=== PATIENT | female | born 1990 | race Caucasian/White ===

== ENCOUNTER 2019-02-15 06:34 | Observation (INO) ==
[2019-02-15] MEDS ORDERED: HYDROmorphone 2 MG/1 ML VIAL IV STA ×3 (07:03→10:09)
[2019-02-15] MEDS ORDERED: SODIUM CHLORIDE 0.9% 1,000 ML IV STA ×2 (07:03→10:09)
[2019-02-15] MEDS ORDERED: ONDANSETRON 4 MG/2 ML VIAL IV STA (07:03)
[2019-02-15 07:44] LABS: Apearance,Urine CLEAR (Clear); Bilirubin,Urine Negative (Negative); Blood, Urine Moderate mg/dL (Negative); Glucose,Urine (UA) Negative (Negative); Ketones,Urine 80 mg/dL (Negative); Mucus,Urine Many /LPF (Occasional); Nitrite,Urine Negative (Negative); Protein,Urine 30 MG/DL; RBC,Urine 55 /HPF (0-4); Squamous Epithelial Cell,Urine Occasional /HPF (0-10); Urine Color Yellow (Yellow); Urine Specific Gravity 1.032 (1.001-1.035); Urine Urobilinogen < 2.0 EU/DL (0.2-1.0); WBC,Urine 1 /HPF (0-6)
[2019-02-15] MEDS ORDERED: KETOROLAC 30 MG/1 ML VIAL ONE (08:23)
[2019-02-15] MEDS ORDERED: KETOROLAC 30 MG/1 ML VIAL IV STA (08:29)
[2019-02-15] MEDS ORDERED: PROMETHAZINE 25 MG/1 ML VIAL ONE (10:01)
[2019-02-15] MEDS ORDERED: PROMETHAZINE 25 MG/1 ML VIAL IM STA (10:09)
[2019-02-15] MEDS ORDERED: PROMETHAZINE 25 MG/1 ML VIAL IM PRN (14:14)
[2019-02-15] MEDS ORDERED: ACETAMINOPHEN 325 MG TABLET PO PRN (14:14)
[2019-02-15 15:34] LABS: Basophils % 0.1 % (0.0-0.8); Eosinophils % 0.1 % (0.00-10.9); Hematocrit 39.5 VOL% (35.7-47.0); Hemoglobin 12.4 GM/DL (12.0-16.0); Immature Granulocytes % 0.3 %; Immature Granulocytes Absolute 0.03 #; Lymphocytes # 0.7 10*3/uL (1.4-4.0); Lymphocytes % 7.4 % (21.3-54.2); Mean Corpuscular HGB Conc 31.4 GM/DL (32-36); Mean Corpuscular Volume 91.4 FL (87-102); Monocytes % 5.7 % (1.7-12.7); Neutrophils % 86.4 % (38.7-73.9); Platelet Count 192 T/CUMM (130-400); Red Blood Count 4.32 MC/CUMM (3.8-5.5); Red Cell Distribution Width 13.7 % (9.3-17.3); White Blood Count 8.8 T/CUMM (4-12)
[2019-02-15 15:42] LABS: Calcium 9.1 MG/DL (8.5-10.1); Osmolality,Calculated 270.8 MOS/KG (273-304)
[2019-02-15] MEDS ORDERED: ENOXAPARIN 40 MG/0.4 ML SYRINGE SUBCUT SCH (16:00)
[2019-02-15] MEDS: SODIUM CHLORIDE 0.9% 1,000 ML IV SCH (16:36)
[2019-02-15] MEDS ORDERED: diphenhydrAMINE 50 MG/1 ML VIAL IV PRN (17:37)
[2019-02-15] MEDS: HYDROmorphone 2 MG/1 ML VIAL IV PRN ×2 (18:14→22:23)
[2019-02-15] MEDS: ONDANSETRON 4 MG/2 ML VIAL IV PRN (18:18)
[2019-02-15] MEDS: LACTULOSE 20 GM/30 ML UDCUP PO PRN (18:35)
[2019-02-15] MEDS: TAMSULOSIN 0.4 MG CAPSULE PO SCH (21:26)
[2019-02-16 05:51] LABS: Basophils % 0.2 % (0.0-0.8); Eosinophils # 0.1 10*3/uL (0.0-0.87); Eosinophils % 1.6 % (0.00-10.9); Hematocrit 32.2 VOL% (35.7-47.0); Immature Granulocytes % 0.2 %; Immature Granulocytes Absolute 0.01 #; Lymphocytes # 1.7 10*3/uL (1.4-4.0); Lymphocytes % 37.3 % (21.3-54.2); Mean Corpuscular HGB Conc 32.3 GM/DL (32-36); Mean Corpuscular Volume 89.9 FL (87-102); Mean Platelet Volume 11.2 FL (9.6-12.0); Neutrophils % 49.7 % (38.7-73.9); Platelet Count 167 T/CUMM (130-400); Red Blood Count 3.58 MC/CUMM (3.8-5.5); Red Cell Distribution Width 13.6 % (9.3-17.3)
[2019-02-16 06:03] LABS: Calcium 8.1 MG/DL (8.5-10.1); Osmolality,Calculated 284.7 MOS/KG (273-304)
[2019-02-16 06:25] LABS: Hemoglobin 10.4 GM/DL (12.0-16.0); White Blood Count 4.5 T/CUMM (4-12)
[2019-02-16] MEDS ORDERED: cefTRIAXone 1,000 MG in SYRINGE 1 EACH IV ONE (07:10)
[2019-02-16] MEDS: SODIUM CHLORIDE 0.9% 1,000 ML IV SCH ×3 (08:30→19:32)
[2019-02-16] MEDS ORDERED: MIDAZOLAM 2 MG/2 ML VIAL ONE (10:42)
[2019-02-16] MEDS ORDERED: fentaNYL 100 MCG/2 ML VIAL ONE (10:43)
[2019-02-16] MEDS ORDERED: PROPOFOL 200 MG/20 ML VIAL IV ONE (10:43)
[2019-02-16] MEDS ORDERED: SEVOFLURANE 1 UNIT/15 MINUTE INH ONE (10:43)
[2019-02-16] MEDS ORDERED: KETOROLAC 30 MG/1 ML VIAL ONE (10:44)
[2019-02-16] MEDS ORDERED: SODIUM CHLORIDE 0.9% 250 ML IV ONE (10:44)
[2019-02-16] MEDS ORDERED: ONDANSETRON 4 MG/2 ML VIAL ONE (10:44)
[2019-02-16] MEDS ORDERED: DEXAMETHASONE 4 MG/1 ML VIAL ONE (10:44)
[2019-02-16] MEDS ORDERED: ONDANSETRON 4 MG/2 ML VIAL IV PRN (10:54)
[2019-02-16] MEDS: HYDROmorphone 2 MG/1 ML VIAL IV PRN ×3 (11:00→13:35)
[2019-02-16] MEDS: ONDANSETRON 4 MG/2 ML VIAL IV PRN (11:00)
[2019-02-16] MEDS: PANTOPRAZOLE 40 MG TABLET PO SCH (11:49)
[2019-02-16] MEDS ORDERED: KETOROLAC 15 MG/1 ML VIAL IV PRN (14:08)
[2019-02-16] MEDS ORDERED: OXYBUTYNIN 5 MG TABLET PO PRN (14:09)
[2019-02-16] MEDS: PHENAZOPYRIDINE 95 MG TABLET PO SCH (16:55)
[2019-02-16] MEDS: TAMSULOSIN 0.4 MG CAPSULE PO SCH (20:50)
[2019-02-16] MEDS: LACTULOSE 20 GM/30 ML UDCUP PO PRN (20:59)
[2019-02-17] MEDS: SODIUM CHLORIDE 0.9% 1,000 ML IV SCH (02:58)
[2019-02-17 05:44] LABS: Eosinophils % 0.2 % (0.00-10.9); Hematocrit 31.8 VOL% (35.7-47.0); Hemoglobin 10.1 GM/DL (12.0-16.0); Immature Granulocytes % 0.3 %; Immature Granulocytes Absolute 0.02 #; Lymphocytes # 1.1 10*3/uL (1.4-4.0); Lymphocytes % 16.4 % (21.3-54.2); Mean Corpuscular HGB Conc 31.8 GM/DL (32-36); Mean Corpuscular Volume 91.6 FL (87-102); Mean Platelet Volume 11.2 FL (9.6-12.0); Monocytes % 10.3 % (1.7-12.7); Neutrophils % 72.8 % (38.7-73.9); Platelet Count 169 T/CUMM (130-400); Red Blood Count 3.47 MC/CUMM (3.8-5.5); White Blood Count 6.5 T/CUMM (4-12)
[2019-02-17 06:02] LABS: Calcium 8.3 MG/DL (8.5-10.1); Osmolality,Calculated 289.4 MOS/KG (273-304)
[2019-02-17] MEDS: PHENAZOPYRIDINE 95 MG TABLET PO SCH (07:59)
[2019-02-17] MEDS: PANTOPRAZOLE 40 MG TABLET PO SCH (07:59)
[2019-02-17 08:28] VITALS: BP 104/66
[2019-02-18 23:25] LABS: Stone Source Right Ureter
== END 2019-02-17 10:40 | disposition home or self-care (01) ==
LOC: N.EDINP 06:34 → N.ED 06:34 → N.5E 15:16
PROVIDERS: ADMIT Internal Medicine; ATTEND Internal Medicine

== ENCOUNTER 2020-02-15 05:32 | Inpatient (IN) ==
[2020-02-15] MEDS ORDERED: ONDANSETRON 4 MG/2 ML VIAL IV PRN ×2 (06:04→11:34)
[2020-02-15] MEDS ORDERED: CITRIC ACID/SODIUM CITRATE 30 ML UDCUP PO ONE ×2 (06:07→06:08)
[2020-02-15] MEDS ORDERED: LACTATED RINGERS 1,000 ML IV ONE (06:07)
[2020-02-15] MEDS ORDERED: FAMOTIDINE 20 MG/2 ML VIAL IV ONE ×2 (06:07→06:08)
[2020-02-15] MEDS ORDERED: ceFAZolin 2,000 MG in PREMIX 1 EACH IV ONE (06:08)
[2020-02-15] MEDS ORDERED: LACTATED RINGERS 1,000 ML IV SCH ×2 (06:30→12:00)
[2020-02-15 06:43] LABS: Basophils % 0.2 % (0.0-0.8); Eosinophils # 0.1 10*3/uL (0.0-0.87); Eosinophils % 0.7 % (0.00-10.9); Hematocrit 32.8 VOL% (35.7-47.0); Hemoglobin 10.7 GM/DL (12.0-16.0); Immature Granulocytes % 0.7 %; Immature Granulocytes Absolute 0.08 #; Lymphocytes # 2.5 10*3/uL (1.4-4.0); Mean Corpuscular HGB Conc 32.6 GM/DL (32-36); Mean Corpuscular Volume 90.4 FL (87-102); Mean Platelet Volume 10.3 FL (9.6-12.0); Monocytes % 7.4 % (1.7-12.7); Platelet Count 184 T/CUMM (130-400); Red Blood Count 3.63 MC/CUMM (3.8-5.5); Red Cell Distribution Width 13.3 % (9.3-17.3)
[2020-02-15] MEDS ORDERED: ROPIVACAINE 0.5% 30 ML VIAL ONE (07:14)
[2020-02-15] MEDS ORDERED: MORPHINE 10 MG/10 ML VIAL ONE (07:14)
[2020-02-15] MEDS ORDERED: PHENYLEPHRINE 1 MG/10 ML SYRINGE IV ONE (07:14)
[2020-02-15] MEDS ORDERED: BUPIVACAINE SPINAL 0.75% 2 ML AMP SPINAL ONE (07:15)
[2020-02-15] MEDS ORDERED: CARBOPROST TROMETHAMINE 250 MCG/ML AMP IM ONE (09:03)
[2020-02-15] MEDS ORDERED: miSOPROStoL 200 MCG TABLET ONE (09:03)
[2020-02-15] MEDS ORDERED: METHYLERGONOVINE 0.2 MG/1 ML AMP ONE (09:03)
[2020-02-15] MEDS ORDERED: TRANEXAMIC ACID 1,000 MG/10 ML VIAL ONE (09:03)
[2020-02-15] MEDS ORDERED: OXYTOCIN/LR 20 UNIT/1,000 ML BAG IV ONE ×2 (09:03→11:34)
[2020-02-15] MEDS ORDERED: RHO(D) IMMUNE GLOBULIN 300 MCG SYRINGE IM ONE (11:34)
[2020-02-15] MEDS ORDERED: ACETAMINOPHEN 325 MG TABLET PO PRN (11:34)
[2020-02-15] MEDS ORDERED: MAGNESIUM HYDROXIDE SUSP 30 ML UDCUP PO PRN (11:34)
[2020-02-15] MEDS ORDERED: MIDAZOLAM 2 MG/2 ML VIAL ONE (11:36)
[2020-02-15 12:22] LABS: Apearance,Urine CLEAR (Clear); Bilirubin,Urine Negative (Negative); Blood, Urine Negative (Negative); Glucose,Urine (UA) Negative (Negative); Ketones,Urine Negative (Negative); Nitrite,Urine Negative (Negative); Protein,Urine Negative; RBC,Urine <1 /HPF (0-4); Urine Color Straw (Yellow); Urine Specific Gravity 1.008 (1.001-1.035); Urine Urobilinogen < 2.0 EU/DL (0.2-1.0); WBC,Urine 1 /HPF (0-6)
[2020-02-15] MEDS: KETOROLAC 30 MG/1 ML VIAL IV SCH ×2 (13:20→18:55)
[2020-02-15] MEDS: ACETAMINOPHEN 500 MG TABLET PO SCH ×2 (13:23→18:56)
[2020-02-15] MEDS: SIMETHICONE CHEW 80 MG TABLET PO PRN (14:16)
[2020-02-15] MEDS: ceFAZolin 1,000 MG in SYRINGE 1 EACH IV SCH (17:46)
[2020-02-15 18:12] LABS: Basophils % 0.1 % (0.0-0.8); Hematocrit 30.4 VOL% (35.7-47.0); Hemoglobin 9.7 GM/DL (12.0-16.0); Immature Granulocytes % 0.6 %; Immature Granulocytes Absolute 0.11 #; Lymphocytes % 5.4 % (21.3-54.2); Mean Corpuscular HGB Conc 31.9 GM/DL (32-36); Mean Corpuscular Volume 91.6 FL (87-102); Mean Platelet Volume 9.9 FL (9.6-12.0); Monocytes % 3.3 % (1.7-12.7); Neutrophils % 90.6 % (38.7-73.9); Platelet Count 183 T/CUMM (130-400); Red Blood Count 3.32 MC/CUMM (3.8-5.5); Red Cell Distribution Width 13.2 % (9.3-17.3); White Blood Count 17.7 T/CUMM (4-12)
[2020-02-15 18:37] LABS: Hypochromasia Slight; Lymphocytes 4 % (20-55); Platelet Estimate Normal; Segmented Neutrophils 93 % (50-85); Total Cells Counted 100
[2020-02-15] MEDS: DOCUSATE SODIUM 100 MG CAPSULE PO SCH (21:29)
[2020-02-15] MEDS ORDERED: oxyCODONE/ACETAMINOPHEN 5-325 MG TABLET PO PRN (21:40)
[2020-02-16] MEDS: KETOROLAC 30 MG/1 ML VIAL IV SCH ×2 (00:39→06:39)
[2020-02-16] MEDS: ACETAMINOPHEN 500 MG TABLET PO SCH ×2 (00:46→07:06)
[2020-02-16] MEDS: ceFAZolin 1,000 MG in SYRINGE 1 EACH IV SCH (01:50)
[2020-02-16 05:51] LABS: Basophils % 0.2 % (0.0-0.8); Eosinophils # 0.1 10*3/uL (0.0-0.87); Eosinophils % 0.4 % (0.00-10.9); Hematocrit 24.6 VOL% (35.7-47.0); Hemoglobin 8.1 GM/DL (12.0-16.0); Immature Granulocytes % 0.6 %; Immature Granulocytes Absolute 0.08 #; Lymphocytes # 2.4 10*3/uL (1.4-4.0); Lymphocytes % 19.6 % (21.3-54.2); Mean Corpuscular HGB Conc 32.9 GM/DL (32-36); Mean Corpuscular Volume 88.5 FL (87-102); Mean Platelet Volume 10.1 FL (9.6-12.0); Monocytes % 9.8 % (1.7-12.7); Neutrophils % 69.4 % (38.7-73.9); Platelet Count 173 T/CUMM (130-400); Red Blood Count 2.78 MC/CUMM (3.8-5.5); Red Cell Distribution Width 13.1 % (9.3-17.3); White Blood Count 12.4 T/CUMM (4-12)
[2020-02-16] MEDS: oxyCODONE/ACETAMINOPHEN 5-325 MG TABLET PO PRN ×2 (06:32→17:26)
[2020-02-16] MEDS: DOCUSATE SODIUM 100 MG CAPSULE PO SCH ×3 (10:30→22:55)
[2020-02-16] MEDS: MULTIVITAMIN (PRENATAL) TABLET PO SCH (10:30)
[2020-02-16] MEDS: FERROUS SULFATE 325 MG TABLET PO SCH (10:31)
[2020-02-16] MEDS ORDERED: diphenhydrAMINE CAP 25 MG CAPSULE PO PRN (10:42)
[2020-02-16] MEDS: IBUPROFEN 800 MG TABLET PO PRN ×2 (10:44→19:32)
[2020-02-16] MEDS ORDERED: RHO(D) IMMUNE GLOBULIN 300 MCG SYRINGE IM ONE (11:00)
[2020-02-16] MEDS: SIMETHICONE CHEW 80 MG TABLET PO PRN (19:45)
[2020-02-17] MEDS: oxyCODONE/ACETAMINOPHEN 5-325 MG TABLET PO PRN (00:09)
[2020-02-17] MEDS ORDERED: BISACODYL 10 MG SUPP RECTAL PRN (03:12)
[2020-02-17] MEDS: SIMETHICONE CHEW 80 MG TABLET PO PRN (04:12)
[2020-02-17] MEDS: IBUPROFEN 800 MG TABLET PO PRN (04:12)
[2020-02-17] MEDS: FERROUS SULFATE 325 MG TABLET PO SCH (09:47)
[2020-02-17] MEDS: MULTIVITAMIN (PRENATAL) TABLET PO SCH (09:47)
[2020-02-17] MEDS: DOCUSATE SODIUM 100 MG CAPSULE PO SCH (09:47)
[2020-02-17 10:19] VITALS: BP 121/64
== END 2020-02-17 11:30 | disposition home or self-care (01) | DRG 785 ==
LOC: N.LDOUT 05:32 → N.LD 05:34 → N.OB 14:24
PROVIDERS: ADMIT Obstetrics & Gynecology; ATTEND Obstetrics & Gynecology